=== PATIENT | female | born 1945 | race Caucasian/White ===

== ENCOUNTER 2017-07-12 07:35 | Day surgery (SDC) | payer MEDICARE, OTHER ==
[~2017-07-12 07:35] MED LIST: Lidocaine 1%/Sod Bicarbonate in NS 8.4% 1 ML Syringe IV PRN; Midazolam 1 MG/ML 2 ML SDV ONE; Propofol 200 MG/20 ML SDV ONE; Rocuronium 50 MG/5 ML Vial ONE; Sodium Chloride 0.9% 10 ML Syringe FLUSH PRN; ceFAZolin 1 GM Vial ONE; fentaNYL 250 MCG/5 ML SDV ONE
[2017-07-12] MEDS: Lactated Ringers 1,000 ML IV SCH ×2 (08:10→11:42)
[2017-07-12] MEDS ORDERED: Bupivacaine 0.5% 30 ML SDV ONE (08:29)
--- NOTE | 2017-07-12 09:06 | PCM.PREANE ---
Preanesthetic Assessment - Anesthesia/Transfusion/Family Hx Anesthesia History: Prior Anesthesia Without Reaction Family History of Anesthesia Reaction: No Transfusion History: No Prior Transfusion(s) - Review of Systems General: No Symptoms Pulmonary: No Symptoms Cardiovascular: Other (HTN controlled on meds) Gastrointestinal: Other (occasional heartburn, takes tums ) Neurological: No Symptoms Other: Reports: None - Physical Assessment NPO Status Date: 07/11/17 NPO Status Time: 21:00 Pulse: 78 O2 Sat by Pulse Oximetry: 98 Respiratory Rate: 16 Blood Pressure: 152/67 Temperature: 36.6 C Vital Signs: Last Vital Signs Temp 36.6 C 07/12/17 07:40 Pulse 78 07/12/17 07:40 Resp 16 07/12/17 07:40 BP 152/67 H 07/12/17 07:40 Pulse Ox 98 07/12/17 07:40 Height: 1.52 m Weight: 85.729 kg ASA Class: 2 Mental Status: Alert & Oriented x3 Airway Class: Mallampati = 2 Dentition: Reports: Normal Dentition ROM/Head Extension: Full Lungs: Clear to Auscultation, Normal Respiratory Effort Cardiovascular: Regular Rate, Regular Rhythm - Lab Values: Laboratory Last Values WBC 7.07 K/mm3 (3.98-10.04) 07/10/17 11:22 RBC 4.82 M/mm3 (3.98-5.22) 07/10/17 11:22 Hgb 14.3 gm/L (11.2-15.7) 07/10/17 11:22 Hct 42.3 % (34.1-44.9) 07/10/17 11:22 MCV 87.8 fl (79.4-94.8) 07/10/17 11:22 MCH 29.7 pg (25.6-32.2) 07/10/17 11:22 MCHC 33.8 g/dl (32.2-35.5) 07/10/17 11:22 RDW Std Deviation 42.3 fL (36.4-46.3) 07/10/17 11:22 Plt Count 183 K/mm3 (182-369) 07/10/17 11:22 MPV 9.4 fl (9.4-12.3) 07/10/17 11:22 Neut % (Auto) 61.5 % (34.0-71.1) 07/10/17 11:22 Lymph % (Auto) 28.4 % (19.3-51.7) 07/10/17 11:22 [place] % (Auto) 8.8 % (4.7-12.5) 07/10/17 11:22 Eos % (Auto) 0.7 (0.7-5.8) 07/10/17 11:22 Baso % (Auto) 0.3 % (0.1-1.2) 07/10/17 11:22 Neut # (Auto) 4.35 K/mm3 (1.56-6.13) 07/10/17 11:22 Lymph # (Auto) 2.01 K/mm3 (1.18-3.74) 07/10/17 11:22 [place] # (Auto) 0.62 K/mm3 (0.24-0.36) H 07/10/17 11:22 Eos # (Auto) 0.05 K/mm3 (0.04-0.36) 07/10/17 11:22 Baso # (Auto) 0.02 K/mm3 (0.01-0.08) 07/10/17 11:22 Sodium 140 mEq/L (136-145) 07/10/17 11:22 Potassium 3.9 mEq/L (3.5-5.1) 07/10/17 11:22 Chloride 104 mEq/L (98-107) 07/10/17 11:22 Carbon Dioxide 27 mEq/L (21-32) 07/10/17 11:22 Anion Gap 12.9 (5-15) 07/10/17 11:22 BUN 16 mg/dL (7-18) 07/10/17 11:22 Creatinine 0.9 mg/dL (0.55-1.02) 07/10/17 11:22 Est Cr Clr Drug Dosing TNP 07/10/17 11:22 Estimated GFR (MDRD) > 60 mL/min (>60) 07/10/17 11:22 BUN/Creatinine Ratio 17.8 (14-18) 07/10/17 11:22 Glucose 100 mg/dL (83-115) 07/10/17 11:22 Calcium 9.4 mg/dL (8.5-10.1) 07/10/17 11:22 Total Bilirubin 0.5 mg/dL (0.2-1.0) 07/10/17 11:22 AST 25 U/L (15-37) 07/10/17 11:22 ALT 27 U/L (14-59) 07/10/17 11:22 Alkaline Phosphatase 89 U/L (46-116) 07/10/17 11:22 Total Protein 7.5 g/dl (6.4-8.2) 07/10/17 11:22 Albumin 4.0 g/dl (3.4-5.0) 07/10/17 11:22 Globulin 3.5 gm/dL 07/10/17 11:22 Albumin/Globulin Ratio 1.1 (1-2) 07/10/17 11:22 Urine Color Light yellow (Yellow) 07/10/17 11:22 Urine Appearance Clear (Clear) 07/10/17 11:22 Urine pH 6.5 (5.0-8.0) 07/10/17 11:22 Ur Specific Bryce 1.015 (1.005-1.030) 07/10/17 11:22 Urine Protein Negative (Negative) 07/10/17 11:22 Urine Glucose (UA) Negative (Negative) 07/10/17 11:22 Urine Ketones Negative (Negative) 07/10/17 11:22 Urine Occult Blood Negative (Negative) 07/10/17 11:22 Urine Nitrite Negative (Negative) 07/10/17 11:22 Urine Bilirubin Negative (Negative) 07/10/17 11:22 Urine Urobilinogen 0.2 (0.2-1.0) 07/10/17 11:22 Ur Leukocyte Esterase Trace (Negative) H 07/10/17 11:22 Blood Type O POSITIVE 07/10/17 11:22 Gel Antibody Screen Negative 07/10/17 11:22 - Allergies Allergies/Adverse Reactions: Allergies Allergy/AdvReac Type Severity Reaction Status Date / Time No Known Allergies Allergy Verified 07/11/17 15:57 - Blood Blood Available: No Product(s) Available: None - Anesthesia Plan Pre-Op Medication Ordered: None - Acknowledgements Anesthesia Type Planned: General Anesthesia Pt an Appropriate Candidate for the Planned Anesthesia: Yes Alternatives and Risks of Anesthesia Discussed w Pt/Guardian: Yes Pt/Guardian Understands and Agrees with Anesthesia Plan: Yes PreAnesthesia Questionnaire HEENT History: Reports: Impaired Vision Cardiovascular History: Reports: Hypertension Respiratory History: Reports: None Gastrointestinal History: Reports: None Genitourinary History: Reports: None 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: , Other (See Below) Other OB/BYN History: , post-menopausal bleeding Neurological History: Reports: None Psychiatric History: Reports: None Endocrine/Metabolic History: Reports: None Hematologic History: Reports: None Immunologic History: Reports: None Oncologic (Cancer) History: Reports: None Dermatologic History: Reports: None - Past Surgical History HEENT Surgical History: Reports: Tonsillectomy Respiratory Surgical History: Reports: None GI Surgical History: Reports: Cholecystectomy Female Surgical History: Reports: D&C Endocrine Surgical History: Reports: None Neurological Surgical History: Reports: None Other Musculoskeletal Surgeries/Procedures:: foot surgery Oncologic Surgical History: Reports: None Dermatological Surgical History: Reports: None - HOME MEDS Home Medications: Home Meds Lisinopril [Lisinopril] 20 mg PO DAILY 07/11/17 [History] - CURRENT (IN HOUSE) MEDS Current Meds: Current Medications Lactated Ringer's (Ringers, Lactated) 1,000 mls @ 125 mls/hr IV ASDIRECTED JOSE Last Admin: 07/12/17 08:10 Dose: 125 mls/hr Lidocaine/Sodium Bicarbonate (Buffered Lidocaine 1% In Ns 8.4%) 0.25 ml IV ONETIME PRN PRN Reason: Prior to IV Start Last Admin: 07/12/17 08:09 Dose: 0.25 ml Sodium Chloride (Saline Flush) 10 ml FLUSH ASDIRECTED PRN PRN Reason: Keep Vein Open Discontinued Medications Bupivacaine HCl (Marcaine 0.5%) Confirm Administered Dose 30 ml .ROUTE .STK-MED ONE Stop: 07/12/17 08:30 Cefazolin Sodium (Ancef) Confirm Administered Dose 2 gm .ROUTE .STK-MED ONE Stop: 07/12/17 07:22 Fentanyl (Sublimaze) Confirm Administered Dose 250 mcg .ROUTE .STK-MED ONE Stop: 07/12/17 07:22 Lidocaine/Epinephrine (Xylocaine 1% With Epinephrine 1:100,000) Confirm Administered Dose 20 ml .ROUTE .STK-MED ONE Stop: 07/12/17 08:29 Midazolam HCl (Versed 1 Mg/Ml) Confirm Administered Dose 2 mg .ROUTE .STK-MED ONE Stop: 07/12/17 07:22 Propofol (Diprivan 20 Ml) Confirm Administered Dose 200 mg .ROUTE .STK-MED ONE Stop: 07/12/17 07:22 Rocuronium [place] (Zemuron) Confirm Administered Dose 50 mg .ROUTE .STK-MED ONE Stop: 07/12/17 07:22 Sodium Chloride (Normal Saline) Confirm Administered Dose 50 ml .ROUTE .STK-MED ONE Stop: 07/12/17 08:29
[2017-07-12] MEDS ORDERED: Scopolamine 1.5 MG Transdermal Patch TRDERM ONE (09:07)
[2017-07-12] MEDS ORDERED: Ketorolac 30 MG/ML SDV ONE (09:44)
[2017-07-12] MEDS ORDERED: Dexamethasone 4 MG/ML 5 ML MDV ONE (09:44)
[2017-07-12] MEDS ORDERED: Ondansetron 4 MG/2 ML SDV ONE (09:44)
[2017-07-12] MEDS: Lidocaine 1% with EPINEPHrine 1:100,000 20 ML MDV ONE ×2 (10:06→10:20)
[2017-07-12] MEDS ORDERED: HYDROmorphone 1 MG/ML Syringe ONE (10:06)
[2017-07-12] MEDS: Sodium Chloride 0.9% 50 ML SDV ONE ×2 (10:07→10:20)
[2017-07-12] MEDS ORDERED: Ondansetron 4 MG/2 ML SDV IVPUSH PRN ×2 (10:35→10:59)
[2017-07-12] MEDS ORDERED: fentaNYL 100 MCG/2 ML SDV IVPUSH PRN (10:35)
[2017-07-12] MEDS ORDERED: HYDROmorphone 0.5 MG/0.5 ML Syringe IVPUSH PRN (10:35)
[2017-07-12] MEDS ORDERED: Metoclopramide 10 MG/2 ML SDV IVPUSH PRN (10:35)
[2017-07-12] MEDS ORDERED: Neostigmine Methylsulfate 1 MG/ML 5 ML Syringe ONE (10:49)
[2017-07-12] MEDS ORDERED: Acetaminophen/oxyCODONE 325-5 MG Tab PO PRN (10:59)
--- NOTE | 2017-07-12 11:05 | PCM.POSTAN ---
POST ANESTHESIA ASSESSMENT - MENTAL STATUS Mental Status: Alert, Oriented - VITAL SIGNS Pulse Rate: 72 SaO2: 100 Resp Rate: 16 Blood Pressure: 127/64 Temperature: 36.3 C - RESPIRATORY Respiratory Status: Respiratory Rate WNL, Airway Patent, O2 Saturation Stable - CARDIOVASCULAR CV Status: Pulse Rate WNL, Blood Pressure Stable - GASTROINTESTINAL GI Status: No Symptoms - PAIN Pain Score: 0 - POST OP HYDRATION Hydration Status: Adequate & Stable
--- NOTE | 2017-07-12 11:05 | PCM.OPNOTE ---
- General Post-Op/Procedure Note Date of Surgery/Procedure: 07/12/17 Operative Procedure(s): Assisted total vaginal hysterectomy with bilateral salpingo-oophorectomy Findings: Uterus is upper limits normal size. Ovaries were somewhat atrophic. No other abnormalities were noted. The appendix was flaccid and noninflamed. Pre Op Diagnosis: Postmenopausal uterine bleeding. Thickened endometrium Post-Op Diagnosis: Postmenopausal uterine bleeding, uterine fibroidintramural Anesthesia Technique: General ET Tube Other Anesthesia Type: Marcaine 0.5%10 mL, lidocaine quarter percent with [id number] mL Primary Surgeon: Lamonte Welch Secondary Surgeon: Jonnie Alexander Anesthesia Provider: Jane Bautista Reason Manpower Development Specialist Manager Was Necessary: Retraction, patient safety, quality care Role of Manpower Development Specialist Manager: Retraction Fluid Replacement, Intraop: 1,800 Output, Urine Amount: 200 EBL in mLs: 75 Drain/Tube Comments:: Indwelling bladder catheter during surgery, removed at the end of the case. Complications: None Condition: Good Free Text/Narrative:: Surgery duration: 60 minutes Procedure:The patient was taken to the operating room placed in supine position on the operating table. She received 2 g of Ancef preoperatively for infection prophylaxis. She had signed consent previously. After adequate anesthesia patient was placed in a dorsal lithotomy position. It should be noted she had sequential compression stockings in place for DVT prophylaxis. A uterine manipulator was placed as was an indwelling bladder catheter. This after adequate prepping and draping. The patient was placed in supine position and for laparotomy port sites withi developed. Marcaine 0.5% approximately 3-4 mL at each site use. Infraumbilical, suprapubic and 2 lateral port sites were developed. Pneumoperitoneum was then established and under laparoscopic guidance the upper portion of the hysterectomy was performed. The right infundibulopelvic ligament and the mesosalpinx were elevated and crossclamped using the endoseal computerized cautery device freeing up the fallopian tube and the right ovary from the pelvic sidewall.. At this time attention was turned to the left side and the left infundibulopelvic ligament were then taken down in a similar fashion. Broad ligament was taken down to the area of the uterine vasculature. Vaginal approach was then undertaken. The patient was placed in the dorsal lithotomy position and a weighted speculum was placed in the vagina. The cervix was injected with lidocaine quarter percent with epinephrine 20 mL total. A full circumference incision was made through the epithelium around the cervix. Posterior cul-de-sac was entered without problems. The left uterosacral ligament and then the right uterosacral were taken down using the Enseal vessel closure system. The cardinal ligament and what remained of the uterine vascular vessels and cervical branches of the vessels were managed with the Enseal vessel closure system on each side. Anterior cul-de-sac was then entered and the remaining portion of broad ligament on the right side and a small portion of broad ligament remaining on the left side were then developed in the usual fashion. Uterus was then removed. At this point the uterus was completely removed and sent as specimen. The vaginal cuff was then run with a locked running suture of 0 Monocryl from the 2 o'clock position to the 10 o'clock position. The vagina was closed with a running locked suture of 0 Monocryl. Hemostasis was confirmed this time and no bleeding was noted. Laparoscopy was then performed to ensure hemostasis. Pneumoperitoneum was reestablished and the laparoscope was placed. The pelvis was found to be hemostatically intact. Ovaries appeared be normal bilaterally no evidence of any bowel adhesion to the vaginal cuff area noted. The sleeves were removed under direct visualization and the upper sleeves and removed after reversal of the pneumoperitoneum. Each of these single interrupted suture of 3-0 Monocryl. There further approximated with Dermabond skin glue. At this point the patient was awakened from general endotracheal anesthesia. The Guerin catheter had been removed by this time. She is discharged from the operating room in good condition.
[2017-07-12] MEDS ORDERED: Lactated Ringers 1,000 ML ONE (11:16)
== END 2017-07-12 14:55 | disposition home or self-care (01) ==
LOC: JD.SDS 07:35
PROVIDERS: ATTEND Obstetrics & Gynecology
DX: C54.1 Malignant neoplasm of endometrium (principal); D25.1 Intramural leiomyoma of uterus; N72 Inflammatory disease of cervix uteri; I10 Essential (primary) hypertension; Z90.89 Acquired absence of other organs; Z90.49 Acquired absence of other specified parts of digestive tract; Z79.899 Other long term (current) drug therapy
CPT/HCPCS: 36415; 58262; 80053; 81003; 85025; 86850; 86900; 86901; 93005; A9270; J0690; J1100; J1170; J1885; J2250; J2405; J2710; J3010; J7120; 00840; 88309; 88341; 88342; J2704

== ENCOUNTER 2017-08-21 17:12 | Emergency (ER) | payer MEDICARE, OTHER ==
--- NOTE | 2017-08-21 17:30 | EDM.PDOC ---
ED HPI GENERAL MEDICAL PROBLEM - General Chief Complaint: Lower Extremity Injury/Pain Stated Complaint: THROBBING PAIN IN LEG Time Seen by Provider: 08/21/17 17:29 Source of Information: Reports: Patient - History of Present Illness INITIAL COMMENTS - FREE TEXT/NARRATIVE: Patient is here today for pain and swelling to her right lower leg. She states that she had surgery [address] Lucila Morel in [place] for a total hysterectomy as well as lymph node biopsy. She does have a diagnosis of uterine cancer and starts radiation soon. Patient notes that she had increased pain and swelling to the posterior aspect of her right calf today. Patient is quite apprehensive her blood clot. She does state that she was more active, walking quite a bit more today than she typically does. Patient denies any rapid heart rate, she denies any chest pain or dyspnea. Patient states that overall she feels very well she is just very concerned about the calf pain and swelling. She is not on any blood thinners currently. 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: , Other (See Below) Other OB/BYN History: , post-menopausal bleeding Neurological History: Reports: None Psychiatric History: Reports: None Endocrine/Metabolic History: Reports: None Hematologic History: Reports: None Immunologic History: Reports: None Oncologic (Cancer) History: Reports: Uterine, Other (See Below) Other Oncologic History: precancerous cells Dermatologic History: Reports: None - Past Surgical History HEENT Surgical History: Reports: Tonsillectomy Respiratory Surgical History: Reports: None GI Surgical History: Reports: Cholecystectomy Female Surgical History: Reports: D&C, Hysterectomy Endocrine Surgical History: Reports: None Neurological Surgical History: Reports: None Musculoskeletal Surgical History: Reports: Other (See Below) Other Musculoskeletal Surgeries/Procedures:: foot surgery bunion removal Oncologic Surgical History: Reports: Other (See Below) Other Oncologic Surgeries/Procedures: lymph nodes removed Social & Family History - Tobacco Use Smoking Status *Q: Never Smoker Second Hand Smoke Exposure: No - Caffeine Use Caffeine Use: Reports: Coffee - Recreational Drug Use Recreational Drug Use: No Review of Systems - Review of Systems Review Of Systems: See Below Respiratory: Reports: No Symptoms Cardiovascular: Reports: No Symptoms Musculoskeletal: Reports: Other (Pain and swelling to right posterior calf. ) Skin: Reports: No Symptoms ED EXAM, GENERAL - Physical Exam Exam: See Below Exam Limited By: Altered Mental Status General Appearance: Alert, WD/WN, Anxious Respiratory/Chest: No Respiratory Distress, Lungs Clear, Normal Breath Sounds Cardiovascular: Normal Peripheral Pulses, Regular Rate, Rhythm, No Murmur Extremities: Normal Inspection, Pedal Edema (1+ non-pitting), Other (Localized area of erythema/warmth just distal to popliteal fossa. Frances's sign negative. ) Neurological: Alert, Oriented Psychiatric: Anxious Skin Exam: Warm, Dry, Intact Course - Vital Signs Last Recorded V/S: Last Vital Signs Temp 97 F 08/21/17 17:18 Pulse 76 08/21/17 17:18 Resp 18 08/21/17 17:18 BP 152/55 H 08/21/17 17:18 Pulse Ox 100 08/21/17 17:18 - Orders/Labs/Meds Labs: Laboratory Tests 08/21/17 08/21/17 08/21/17 Range/Units 17:51 17:51 17:51 WBC 7.01 (3.98-10.04) K/mm3 RBC 3.86 L (3.98-5.22) M/mm3 Hgb 11.6 (11.2-15.7) gm/L Hct 34.9 (34.1-44.9) % MCV 90.4 (79.4-94.8) fl MCH 30.1 (25.6-32.2) pg MCHC 33.2 (32.2-35.5) g/dl RDW Std Deviation 44.1 (36.4-46.3) fL Plt Count 255 (182-369) K/mm3 MPV 8.5 L (9.4-12.3) fl Neutrophils % (Manual) 72 H (40-60) % Band Neutrophils % 0 (0-10) % Lymphocytes % (Manual) 20 (20-40) % Atypical Lymphs % 0 % Monocytes % (Manual) 4 (2-10) % Eosinophils % (Manual) 4 (0.7-5.8) % Basophils % (Manual) 0 L (0.1-1.2) Platelet Estimate Adequate Poikilocytosis 1+ slight Anisocytosis 1+ slight Ovalocytes 1+ slight RBC Morph Comment Not Reportable PT 10.4 (8.0-13.0) SECONDS INR 0.96 D-Dimer, Quantitative 8.15 H (0.19-0.59) mg/L Sodium 143 (136-145) mEq/L Potassium 3.8 (3.5-5.1) mEq/L Chloride 108 H (98-107) mEq/L Carbon Dioxide 28 (21-32) mEq/L Anion Gap 10.8 (5-15) BUN 12 (7-18) mg/dL Creatinine 0.8 (0.55-1.02) mg/dL Est Cr Clr Drug Dosing 46.33 mL/min Estimated GFR (MDRD) > 60 (>60) mL/min BUN/Creatinine Ratio 15.0 (14-18) Glucose 118 H (83-115) mg/dL Calcium 8.5 (8.5-10.1) mg/dL Total Bilirubin 0.3 (0.2-1.0) mg/dL AST 18 (15-37) U/L ALT 19 (14-59) U/L Alkaline Phosphatase 71 (46-116) U/L Total Protein 5.9 L (6.4-8.2) g/dl Albumin 2.9 L (3.4-5.0) g/dl Globulin 3.0 gm/dL Albumin/Globulin Ratio 1.0 (1-2) - Re-Assessments/Exams Free Text/Narrative Re-Assessment/Exam: No respiratory sx or chest pain. O2 100% and HR 76. Localized swelling and to RLE. US demonstrates thrombophlebitis within posterior right popliteal area. Discussed with Dr Navarrete, with patient being high risk due to uterine cancer and recent surgery patient was given the option of anticoagulation for a few weeks. Patient very much prefers to do this, will prescribe Eliquis x4 weeks, R /B/SE discussed at length. Patient to try to tolerate compression stockings, also apply warm compresses to area several times daily. Patient is to follow-up with PCP or certainly return to ER if needed. 08/21/17 19:47 Departure - Departure Time of Disposition: 19:33 Disposition: Home, Self-Care 01 Condition: Good Clinical Impression: Superfic phlebitis-leg Qualifiers: Laterality: right Qualified Code(s): I80.01 - Phlebitis and thrombophlebitis of superficial vessels of right lower extremity - Discharge Information Prescriptions: Apixaban [Eliquis] 5 mg PO BID #35 tablet Instructions: Phlebitis, [id number] Referrals: Manas Coyne MD [Primary Care Provider] - Forms: ED Department Discharge Additional Instructions: Apply warm compresses to affected area several times daily. Continue to try to walk frequently. Consider wearing your compression stockings. Follow-up with PCP and oncologist as planned or return to the ER if needed.
--- NOTE | 2017-08-21 19:04 | US ---
Right lower extremity deep venous ultrasound: Duplex and color flow imaging was obtained of the right common femoral, superficial femoral, popliteal, posterior tibial and peroneal veins. Left common femoral vein was also evaluated. Findings: Varicosity is identified within the right posterior popliteal area which shows thrombus compatible with superficial thrombophlebitis. Deep veins show normal phasic flow, augmentation and compression. Impression: 1. Findings compatible with thrombophlebitis within a varicosity within the posterior right popliteal area. 2. No findings of deep venous thrombosis is seen within the right lower extremity or within the left common femoral vein. Diagnostic code #3
== END 2017-08-21 19:45 | disposition home or self-care (01) ==
LOC: JD.ED 17:12
DX: I80.01 Phlebitis and thrombophlebitis of superficial vessels of right lower extremity (principal); I10 Essential (primary) hypertension; Z79.899 Other long term (current) drug therapy
CPT/HCPCS: 36415; 80053; 85025; 85379; 85610; 93971-26-RT; 93971-RT; 99284; 99284-25

== ENCOUNTER 2021-09-16 10:02 | Day surgery (SDC) | payer MEDICARE, OTHER ==
[~2021-09-16 10:02] MED LIST changes: +Acetaminophen 325 MG Tab PO SCH; +Lactated Ringers 1,000 ML IV SCH; +Lidocaine 1%/Sod Bicarbonate in NS 8.4% 1 ML Syringe IDERM PRN; -Lidocaine 1%/Sod Bicarbonate in NS 8.4% 1 ML Syringe IV PRN; -Midazolam 1 MG/ML 2 ML SDV ONE; +Morphine 8 MG, EPINEPHrine 0.3 MG, Cefuroxime 750 MG, Ketorolac 30 MG, Sodium Chloride ... PRN; +Pregabalin 25 MG Cap PO SCH; -Propofol 200 MG/20 ML SDV ONE; -Rocuronium 50 MG/5 ML Vial ONE; +Sodium Chloride 0.9% 10 ML Syringe FLUSH SCH; -ceFAZolin 1 GM Vial ONE; -fentaNYL 250 MCG/5 ML SDV ONE; +oxyCODONE ER 10 MG TAB.ER PO SCH
[2021-09-16] MEDS ORDERED: Propofol 200 MG/20 ML SDV ONE ×2 (10:37)
[2021-09-16] MEDS ORDERED: Midazolam 1 MG/ML 2 ML SDV ONE (10:37)
[2021-09-16] MEDS ORDERED: Lidocaine 1% 4 ML ONE (10:37)
[2021-09-16] MEDS ORDERED: fentaNYL 100 MCG/2 ML SDV ONE (10:38)
[2021-09-16] MEDS ORDERED: ceFAZolin 1 GM Vial ONE (10:40)
[2021-09-16] MEDS ORDERED: Ropivacaine 0.5% 5 MG/ML 30 ML SDV ONE (10:43)
[2021-09-16] MEDS ORDERED: EPINEPHrine 1 MG/ML SDV ONE (10:43)
[2021-09-16] MEDS ORDERED: Vancomycin 1 GM SDV ONE (10:52)
[2021-09-16] MEDS ORDERED: ePHEDrine 50 MG/ML SDV ONE (11:47)
[2021-09-16] MEDS ORDERED: Lactated Ringers 1,000 ML ONE (12:01)
[2021-09-16] MEDS ORDERED: Ondansetron 4 MG/2 ML SDV ONE (12:47)
[2021-09-16] MEDS ORDERED: fentaNYL 100 MCG/2 ML SDV IVPUSH PRN (13:08)
[2021-09-16] MEDS ORDERED: Ondansetron 4 MG/2 ML SDV IVPUSH PRN (13:08)
[2021-09-16] MEDS ORDERED: Meclizine 12.5 MG Tab PO ONE (16:25)
== END 2021-09-16 17:10 | disposition home or self-care (01) ==
LOC: JD.SDS 10:02
PROVIDERS: ATTEND Orthopaedic Surgery
DX: M17.11 Unilateral primary osteoarthritis, right knee (principal); I10 Essential (primary) hypertension; E78.00 Pure hypercholesterolemia, unspecified; N39.0 Urinary tract infection, site not specified; Z79.899 Other long term (current) drug therapy; Z90.49 Acquired absence of other specified parts of digestive tract; Z98.890 Other specified postprocedural states; G89.18 Other acute postprocedural pain
CPT/HCPCS: 27447; 73560; 97110; 97116; 97161; A9270; C1713; C1776; J0171; J0690; J0697; J1885; J2250; J2270; J2405; J2704; J2795; J3010; J3370; J7120; 01402; 64450; 76942; 99100